=== PATIENT | female | born 1990 | race Caucasian/White ===

== ENCOUNTER 2023-09-11 12:15 | Emergency (ER) | payer MEDICAID ==
[2023-09-11 12:39] VITALS: BP 132/83; O2SAT 100
--- NOTE | 2023-09-11 12:52 | ED Physician Documentation ---
PD HPI FEMALE - Stated complaint Stated Complaint: FEMALE - Chief complaint Chief Complaint: General - History obtained from History obtained from: Patient - History of Present Illness Timing - onset: Yesterday Timing - duration: Days (1) Timing - details: Gradual onset, Still present Associated symptoms: Vaginal pain Contributing factors: Sexually active (new partner) Similar symptoms before: Has not had sx before Recently seen: Not recently seen - Additional information Additional information: Elisa Diamond is a 33-year-old female without prior history who presents to the emergency department with concerns of HSV. She has a new partner and yesterday she noticed pain to the sides of her labia and small bumps. She has had some aching as well. She has not had HSV that she is aware of previously. Her partner is not aware of having HSV previously. She is interested in testing. She would like to know whether this is new or old for her. She has had chlamydia once previously and she states the symptoms do not feel anything like what she had when she had chlamydia. Review of Systems Constitutional: reports: Myalgias, Fatigue. denies: Fever Eyes: denies: Decreased vision Ears: denies: Ear pain Nose: denies: Rhinorrhea / runny nose, Congestion Throat: denies: Sore throat Cardiac: denies: Palpitations Respiratory: denies: Cough GI: denies: Abdominal Pain, Nausea, Vomiting, Constipation, Diarrhea : reports: Other (vaginal blisters). denies: Dysuria, Frequency Musculoskeletal: denies: Neck pain, Back pain, Extremity pain Neurologic: denies: Generalized weakness, Focal weakness, Numbness PD PAST MEDICAL HISTORY - Past Medical History Past Medical History: No Cardiovascular: None Respiratory: None Neuro: None Endocrine/Autoimmune: None GI: None SEASONING SPRAYER: None : None HEENT: None Psych: None Musculoskeletal: None Derm: None - Past Surgical History Past Surgical History: No - Present Medications Home Medications: Ambulatory Orders Medication Instructions Recorded Confirmed Valacyclovir HCl [Valtrex] 1,000 mg PO BID #20 tablet 09/11/23 - Allergies Allergies/Adverse Reactions: Allergies Allergy/AdvReac Type Severity Reaction Status Date / Time No Known Drug Allergies Allergy Verified 09/11/23 12:36 - Social History Does the pt smoke?: Yes Smoking Status: Current every day smoker Does the pt drink ETOH?: No Does the pt have substance abuse?: No - Immunizations Immunizations are current?: Yes - POLST Patient has POLST: No PD ED PE NORMAL - Vitals Vital signs reviewed: Yes (hpysertensive ) - General General: Alert and oriented X 3, No acute distress, Well developed/nourished - HEENT HEENT: Atraumatic, PERRL, EOMI - Respiratory Respiratory: No respiratory distress - Female Female : Insulation Power Unit Tender present (Charlotte CAMPUZANO), Other (to each side of the labia are shallow blisters that are sensitive consistent with the posibility of HSV) - Back Back: No CVA TTP, No spinal TTP - Derm Derm: Normal color, Warm and dry, No rash Results - Vitals Vitals: Vital Signs - 24 hr 09/11/23 12:34 Temperature 36.3 C L Heart Rate 89 Respiratory 17 Rate Blood Pressure 132/83 H O2 Saturation 100 Oxygen O2 Source Room air - Labs Labs: Laboratory Tests 09/11/23 09/11/23 12:30 12:30 Urine Color STRAW Urine Clarity CLEAR Urine pH 5.5 Ur Specific [place] <=1.005 Urine Protein NEGATIVE Urine Glucose (UA) NEGATIVE Urine Ketones NEGATIVE Urine Occult Blood NEGATIVE Urine Nitrite NEGATIVE Urine Bilirubin NEGATIVE Urine Urobilinogen 0.2 (NORMAL) Ur Leukocyte Esterase NEGATIVE Ur Microscopic Review NOT INDICATED Urine Culture Comments NOT INDICATED Urine HCG, Qual NEGATIVE PD Medical Decision Making - ED course Complexity details: considered differential, d/w patient Reviewed Lab Results: A urinalysis is performed that shows clear urine with a specific gravity 1.005 and it is negative is negative as well. ED course: 33-year-old female presents to the emergency department with concerns for HSV and she is interested in knowing whether she has had this previously or this is new for her. We have sent off a sample for HSV 1 and 2 IgG and HIV. We sent specimens for GC and chlamydia as well. Today we are treating her for HSV with valacyclovir and she will await results for any potential further treatment. Departure - Departure Disposition: 01 Home, Self Care Clinical Impression: HSV (herpes simplex virus) infection Instructions: ED Herpes Simplex Virus Type 2 Follow-Up: [facility] [Provider Group] Prescriptions: Valacyclovir HCl [Valtrex] 1,000 mg PO BID #20 tablet Comments: Jacinto, today it looks like there is evidence of HSV 2. We have a test pending on your blood to determine if this is a new infection or if you have had prior exposure. This is a send out test and you will need to follow-up with a primary to get this result. We have sent cultures for chlamydia and GC as well. If these end up being positive we will call you. I have E scribed some Elizabeth acyclovir to the [facility] in [place] to treat this infection. You will need to take this medication twice per day for 7 to 10 days. When these blisters are healed you are no longer contagious. I have given you a number of the women's clinic here in [place] to consider tubal ligation and I have given you a [place]. Forms: PCP List
[2023-09-11 13:02] LABS: BILIRUBIN,URINE NEGATIVE (NEGATIVE); GLUCOSE, URINE (UA) NEGATIVE (NEGATIVE); KETONES,URINE (UA) NEGATIVE (NEGATIVE); LEUKOCYTE ESTERASE, URINE NEGATIVE (NEGATIVE); NITRITE,URINE NEGATIVE (NEGATIVE); OCCULT BLOOD,URINE NEGATIVE (NEGATIVE); PH,URINE 5.5 PH (5.0-7.5); PROTEIN,URINE NEGATIVE (NEGATIVE); UROBILINOGEN,URINE 0.2 (NORMAL) E.U./dL (NORMAL)
[2023-09-11 13:03] LABS: CLARITY,URINE CLEAR (CLEAR)
[2023-09-11 13:04] LABS: HCG UR QUAL NEGATIVE
[2023-09-11 13:31] LABS: HIV RAPID SCREEN NEGATIVE (NEGATIVE)
[2023-09-11 15:35] LABS: CHLAMYDIA TRACHOMATIS DNA NEGATIVE (NEGATIVE); NEISSERIA GONORRHOEAE DNA NEGATIVE (NEGATIVE); TRICHOMONAS VAGINALIS DNA NEGATIVE (NEGATIVE)
[2023-09-12 05:14] LABS: HSV 1 IGG TYPE SPEC <0.91 index (0.00-0.90); HSV 2 IGG TYPE SPEC 3.39 index (0.00-0.90)
== END 2023-09-11 13:53 | disposition home or self-care (01) ==
LOC: ED 12:15
DX: A60.04 Herpesviral vulvovaginitis (principal); F17.200 Nicotine dependence, unspecified, uncomplicated
CPT/HCPCS: 36415; 81001; 81003; 81025; 86695; 86696; 86703; 87086; 87491; 87591; 87661; 99283; 99284

== ENCOUNTER 2023-11-27 08:43 | Day surgery (SDC) | payer MEDICAID ==
[2023-11-27] MEDS: LACTATED RINGERS 1,000 ML IV ONE ×2 (08:48→11:23)
[2023-11-27] MEDS ORDERED: ePHEDrine 50 MG/ML VIAL IVP PRN (09:23)
[2023-11-27] MEDS ORDERED: NALOXONE 0.4 MG/ML VIAL IVP PRN (09:23)
[2023-11-27] MEDS ORDERED: ONDANSETRON 4 MG/2 ML VIAL IVP PRN ×2 (09:23→11:02)
[2023-11-27] MEDS ORDERED: ATROPINE ABBOJECT 1 MG/10 ML SYRINGE IVP PRN (09:23)
[2023-11-27] MEDS ORDERED: fentaNYL 100 MCG/2 ML VIAL IVP PRN (09:23)
[2023-11-27] MEDS ORDERED: METOCLOPRAMIDE 10 MG/2 ML VIAL IVP PRN (09:23)
[2023-11-27] MEDS ORDERED: HYDROmorphone 0.5 MG/0.5 ML SYRINGE IVP PRN (09:23)
[2023-11-27] MEDS ORDERED: MORPHINE 2 MG/ML CARPUJECT IVP PRN (09:23)
--- NOTE | 2023-11-27 09:23 | ANESTHESIA ---
Pre-Anesthesia VS, & Labs - Diagnosis desires sterilization - Procedure lap salpingectomy Vital Signs: Temp Pulse Resp BP Pulse Ox O2 Flow Rate 36.8 C 66 10 L 116/85 H 97 11/27/23 09:11 11/27/23 09:11 11/27/23 09:11 11/27/23 09:11 11/27/23 09:11 Height: 5 ft 7 in Weight (kg): 61.2 kg Body Mass Index: 21.1 BMI Classification: Normal - NPO >8 hours - Is Patient ?: No Home Medications and Allergies Home Medications: Ambulatory Orders No Known Home Medications 11/20/23 No Known Home Medications 11/20/23 Allergies/Adverse Reactions: Allergies Allergy/AdvReac Type Severity Reaction Status Date / Time No Known Drug Allergies Allergy Verified 09/11/23 12:36 Anes History & Medical History - Anesthetic History Anesthesia Complications: reports: No previous complications Family history of Anesthesia Complications: Denies Family history of Malignant Hyperthermia: Denies - Medical History Cardiovascular: reports: None Pulmonary: reports: Other (smoker) Gastrointestinal: reports: None Urinary: reports: None Neuro: reports: None Musculoskeletal: reports: None Endocrine/Autoimmune: reports: None Blood Disorders: reports: None Skin: reports: Psoriasis Smoking Status: Current every day smoker Psychosocial: reports: Substance abuse, Cannabis (pt is a heavy cannabis user.) History of Cancer?: No Exam General: Alert, Oriented x3, Cooperative Dental: WNL Mouth Openin Fingerbreadth Neck Mobility: Normal Mallampati classification: I Thyromental Distance: 4-6 cm Respiratory: Lungs clear Cardiovascular: Regular rate Plan Anesthesia Type: General Consent for Procedure(s) Verified and Reviewed: Yes Code Status: Attempt Resuscitation ASA classification: 2-Mild systemic disease Is this case an emergency?: No
[2023-11-27 09:24] LABS: HCG UR QUAL NEGATIVE
[2023-11-27] MEDS ORDERED: BUPIVACAINE 0.25% PF 30 ML VIAL ONE (09:39)
[2023-11-27 09:40] LABS: BASOPHILS % (AUTO) 0.5 %; EOSINOPHILS # (AUTO) 0.2 10^3/uL (0.0-0.7); EOSINOPHILS % (AUTO) 2.4 %; HCT - HEMATOCRIT 41.1 % (37.0-47.0); HGB - HEMOGLOBIN 13.1 g/dL (12.0-16.0); LYMPHOCYTES # (AUTO) 2.4 10^3/uL (1.5-3.5); MEAN CORPUSCULAR HEMOGLOBIN 29.6 pg (27.0-31.0); MEAN CORPUSCULAR HGB CONC 31.9 g/dL (32.0-36.0); MEAN PLATELET VOLUME 8.6 fL (7.9-10.8); MONOCYTES # (AUTO) 0.7 10^3/uL (0.0-1.0); NEUTROPHILS # (AUTO) 5.5 10^3/uL (1.5-6.6); PLT - PLATELET COUNT 269 10^3/uL (130-450); RED BLOOD COUNT 4.42 10^6/uL (4.20-5.40); WHITE BLOOD COUNT 8.8 x10^3/uL (4.8-10.8)
[2023-11-27] MEDS ORDERED: LACTATED RINGERS 1,000 ML IV SCH (10:00)
[2023-11-27] MEDS ORDERED: MIDAZOLAM 2 MG/2 ML VIAL ONE (10:04)
[2023-11-27] MEDS ORDERED: ROCURONIUM 50 MG/5 ML VIAL ONE (10:04)
[2023-11-27] MEDS ORDERED: fentaNYL 100 MCG/2 ML VIAL ONE ×2 (10:04→11:07)
[2023-11-27] MEDS ORDERED: PROPOFOL 200 MG/20 ML VIAL IVP ONE (10:04)
[2023-11-27] MEDS ORDERED: KETAMINE 500 MG/10 ML VIAL ONE (10:24)
[2023-11-27] MEDS ORDERED: DEXAMETHASONE 4 MG/ML VIAL ONE (10:28)
[2023-11-27] MEDS: BUPIVACAINE 0.25% PF 30 ML VIAL SUBQ ONE ×2 (10:45)
[2023-11-27] MEDS ORDERED: ONDANSETRON 4 MG/2 ML VIAL ONE (10:51)
[2023-11-27] MEDS ORDERED: SUGAMMADEX 200 MG/2 ML VIAL IVP ONE (10:58)
[2023-11-27] MEDS ORDERED: oxyCODONE 5 MG TABLET PO PRN (11:02)
--- NOTE | 2023-11-27 11:06 | OPERATIVE REPORT ---
Operative Report - General Planned Procedure: Laparoscopic bilateral salpingectomy Pre-Op Diagnosis: Desires sterility Procedure Performed: Laparoscopic bilateral salpingectomy Post Op Diagnosis: Desires sterility - Procedure Note Primary Surgeon: Miah Mcconnell MD Secondary Surgeon: GURMEET Ochoa Anesthesia Provider: Jazmin Trevino CRNA, Yao Betancourt CRNA Anesthesia Technique: General ET tube Pathology: Bilateral fallopian tubes IV Fluids (mL): 0 (See anesthesia record) Estimated Blood Loss (mL): 5 Urine Output (mL): 0 (Voided prior to procedure) Findings: Normal-appearing tubes, ovaries, uterus. Complications: None - Other Other Information/Narrative: Prior to surgery, we discussed the risks, alternatives, benefits to tubal ligation. We discussed long-acting control such as IUDs and implants. We had discussion about partner vasectomy and the pros and cons to this including a smaller surgery, and easier recovery. We discussed the general risk of surgery including infection, bleeding, damage to other organs, needing a larger incision. Specific to tubal ligation, we discussed the risk of regret, and discussed that regret is greater in those under 30, without children, and not in stable relationships. Patient says she is confident in her decision to not have any more children. We also discussed the risk of failure, and that less than 1/100 tubal ligation fail, but if it did, she would be at increased risk of ectopic . Patient desires to proceed with bilateral tubal ligation. Patient was taken to the OR and placed in the dorsal lithotomy position using Heri stirrups after adequate anesthesia was obtained. Patient was prepped and draped in the usual fashion. Time out was taken. A bivalve speculum was used to visualize the cervix and a uterine manipulator was placed. 2 mL of Marcaine was used below the umbilicus. An 11 blade scalpel was used to incise the skin. Direct visual entry was used to place the infraumbilical trocar. Upon entering the peritoneal cavity, low flow was used to ensure appropriate positioning. Upon visualization of the abdominal cavity, high flow was then initiated. 2 additional trocars was placed under visualization in a similar fashion in the right and left lower quadrants. After visualization of the left fallopian tube, it was grasped with an atraumatic grasper. The mesosalpinx was cauterized and cut with a Ligasure device. Attention was then turned to the right fallopian tube which was then removed in a similar fashion. The abdomen was reviewed for hemostasis, and a healthy-appearing liver was noted. The trocars were then removed, and abdomen was evacuated of gas. The trocar sites were then closed with a 4-0 Monocryl in a sub-cuticular fashion and covered with Dermabond. Patient was taken to the PACU in stable condition. Patient's partner was notified of good condition after the procedure according to patient wishes. I appreciate the assistance of GURMEET Ochoa during this procedure, and the assistance in retraction, visualization, dissection, and overall assistance during the case were instrumental to the patient's wellbeing.
[2023-11-27 12:18] VITALS: O2SAT 99
[2023-11-27 13:17] VITALS: BP 128/70
--- NOTE | 2023-11-27 14:01 | ANESTHESIA POST OP EVALUATION ---
Anesthesia Post Eval - Post Anesthesia Eval Vitals: Last Vital Signs Temp 36.4 C L 11/27/23 11:49 Pulse 66 11/27/23 12:35 Resp 14 11/27/23 12:35 BP 128/70 11/27/23 12:35 Pulse Ox 99 11/27/23 12:35 O2 Flow Rate CV Function Including HR & BP: Stable Pain Control: Satisfactory Nausea & Vomiting: Negative Mental Status: Baseline Respiratory Status: Airway Patent Hydration Status: Satisfactory Anesthesia Complications: None
== END 2023-11-27 08:44 | disposition home or self-care (01) ==
LOC: SDS 08:43
PROVIDERS: ATTEND Obstetrics & Gynecology
PROC: 0UT74ZZ Resection of Bilateral Fallopian Tubes, Percutaneous Endoscopic Approach (ICD-10-PCS; principal; 2023-11-27 10:00)
DX: Z30.2 Encounter for sterilization (principal); F17.210 Nicotine dependence, cigarettes, uncomplicated
CPT/HCPCS: 58661; 81025; 85025; J7120